=== PATIENT | female | born 1945 | race Caucasian/White ===

== ENCOUNTER → 2023-11-30 13:41 | Outpatient (REF) | payer OTHER, SELFPAY | LOC: RAD 13:41 | PROVIDERS: ATTENDING PHYSICIAN Family Medicine | DX: N93.9 Abnormal uterine and vaginal bleeding, unspecified (principal) | CPT/HCPCS: 76830; 76856 ==

== ENCOUNTER → 2024-07-24 14:43 | Outpatient (REF) | payer OTHER, SELFPAY | LOC: RAD 14:43 | PROVIDERS: ATTENDING PHYSICIAN Internal Medicine Hematology & Oncology; FAMILY PHYSICIAN Family Medicine | DX: C7A.8 Other malignant neuroendocrine tumors (principal) | CPT/HCPCS: 74177; Q9967 ==

== ENCOUNTER → 2025-05-22 09:29 | Outpatient (REF) | payer OTHER, SELFPAY | LOC: WOUND 09:29 | PROVIDERS: ATTENDING PHYSICIAN Surgery; FAMILY PHYSICIAN Family Medicine | DX: L97.319 Non-pressure chronic ulcer of right ankle with unspecified severity (principal); I87.2 Venous insufficiency (chronic) (peripheral) | CPT/HCPCS: 99203 ==

== ENCOUNTER 2025-06-26 06:39 | Observation (INO) | payer OTHER, SELFPAY ==
[2025-06-26] VITALS (12 sets, daily range): BP systolic 120–175; BP diastolic 66–111; PULSE 80; O2SAT 96; BMI 39.8; BMI 39.5
--- NOTE | 2025-06-26 03:37 | ED.GENMED ---
History of Present Illness
General
Chief Complaint: Fall
Source: patient and ambulance crew
Exam Limitations: none
Time Seen by Provider: 06/26/25 03:16
Nursing documentation reviewed up to this point in time: agreed with
History of Present Illness
History of Present Illness:
Note:
CHIEF COMPLAINT(S)
Fall while using a walker.
HISTORY OF PRESENT ILLNESS
The patient is a 80-year-old female who experienced a fall while walking with the aid of her walker. She reports the fall occurred as she attempted to navigate her home. She denies new episodes of weakness as she regularly uses a walker due to
ongoing mobility issues. The patient lives with her and maintains two cats. She fell because she was unable to clean properly, leading to an environment that contributed to her fall. She denies any pain, nausea, or vomiting following the
incident and confirms not hitting her head during the fall.
PAST MEDICAL AND SURGICAL HISTORY
The patient has a history of knee replacement surgery (left knee) and has had prior treatment for colon cancer, treated approximately four years ago.
PHYSICAL EXAM
General: Alert, no acute distress.
Skin: Warm, dry. erythema right groin, buttock, no skin breakdown
Head: Normocephalic, atraumatic.
Neck: Supple, trachea midline.
Eye Ears, nose, mouth and throat: Oral mucosa moist.
Cardiovascular: Normal peripheral perfusion, No edema.
Respiratory: Respirations are non-labored.
Gastrointestinal: Abdominal examination unremarkable.
Back: No visible injuries, no tenderness noted.
Musculoskeletal: Normal ROM, Normal strength.
Neurological: Alert and oriented to person, place, time, and situation, No focal neurological deficit observed.
Psychiatric: Cooperative, appropriate mood & affect.
PROBLEM LIST
Acute Problems:
- Fall while using a walker.
- Potential urinary tract infection.
Chronic Problems:
- History of uterine cancer.
- Mobility issues requiring walker use.
PLAN
- Conduct a computed tomography (CT) scan of the head to rule out any intracranial injuries from the fall.
- Obtain a urine sample to evaluate for potential urinary tract infection.
- Continue to monitor the patients orientation and cognitive status.
DIFFERENTIAL DIAGNOSIS
The Differential Diagnosis includes, in no particular order and is not limited to:
- Urinary tract infection.
- Vestibular dysfunction.
- Medication side effects.
- Orthostatic hypotension.
- Cerebrovascular accident.
- Dehydration.
- Anemia.
- Arthritis exacerbation.
- Neuropathy.
- Environmental hazards at home.
CARE-UPDATE
06/26/25 - 04:36
CT head and cervical spine show no acute trauma, but chronic degenerative changes are present in both areas. Patient has a UTI with associated leukocytosis; initiate treatment with IV Ocephine. Recommend admission under the care of hospitalists.
Disposition:
SUMMARY OF ENCOUNTER
The patient, a 80-year-old female, presented to the emergency department following a fall while using her walker. She did not report pain, nausea, or vomiting and confirmed no head injury. The fall was attributed to environmental hazards in the
home. Her cognitive status is generally intact, although there was a misstatement of the current year. She was evaluated for potential complications such as a urinary tract infection, which was confirmed along with leukocytosis. Imaging indicated no
acute trauma but chronic degenerative changes. Considering the findings and her medical history, she was admitted under the care of the hospitalists for further management.
DISPOSITION
Admit.
ASSESSMENT
- Fall while using a walker.
- Urinary tract infection with leukocytosis.
- Chronic degenerative changes noted.
EMERGENCY TREATMENTS ADMINISTERED
Ceftriaxone (Rocephin) administered for urinary tract infection.
MANAGEMENT OF THE PATIENTS CARE WAS DISCUSSED WITH
Hospitalists for admission and ongoing care.
PLAN
Conduct further evaluation and management of urinary tract infection and fall-related complications under hospitalist care.
INDEPENDENT REVIEW OF LABS AND INTERPRETATION OF TESTS
My independent review of CBC indicates leukocytosis consistent with urinary tract infection.
CRITICAL CARE TIME
Diagnosis of URINARY TRACT INFECTION (ICD-10 N39.0), INCIDENTAL FALL (ICD-10 W19), CHRONIC DEGENERATIVE DISORDERS (ICD-10 M85.9), CANDIDAL DERMATITIS (ICD-10 B37.2).
Past History
Past History
ED Past Medical History: Hypothyroidism and Other (Osteoarthritis)
ED Past Surgical History: Orthopedic
Social History
Tobacco: Non-smoker
Alcohol: None
Phy Exam
Physical Exam
Physical Exam:
.
Course
Orders/Labs/Results
Orders:
Orders
06/26/25 03:34
CT Head W/o Iv Contrast Urgent
Comment:
Reason For Exam: fall
Cardiac Monitoring- Treatment ONCE
IV Insert/Care/Rem.- Treatment PRN
Straight cath- Treatment ONCE
Pulse Ox/cont/shift [RESP] Stat
Quantity: 1
06/26/25 03:44
Complete Blood Count/With Diff Urgent
Comprehensive Metabolic Panel Urgent
Troponin I Urgent
Urinalysis Reflex To Culture Urgent
Date Specimen was Collected: 06/26/25
Time Specimen was Collected: 03:40
Urine Microscopic Reflex Cult Urgent
Urine Culture Urgent
BENJY Source: U
Specimen Description:
Date Specimen was Collected: 06/26/25
Time Specimen was Collected: 03:40
06/26/25 03:54
CT Cervical Spine W/o Iv Contr Urgent
Comment:
Reason For Exam: fall
06/26/25 04:31
CefTRIAXone [Rocephin] 1,000 mg IV NOW STA
Abnormal Lab Results
06/26/25
03:44
WBC 18.0 H 10^3/uL
(4.8-10.8)
MPV 11.4 H fL
(7.4-10.4)
Abs Immat Gran (auto) 0.1 H 10^3/uL
(0-0.05)
Absolute Neuts (auto) 13.9 H 10^3/uL
(1.4-6.5)
Absolute Monos (auto) 1.4 H 10^3/uL
(0.1-0.6)
Immature Gran % 0.7 H %
(0-0.5)
Neutrophils % 77.4 H %
(42.2-75.2)
Lymphocytes % 12.6 L %
(20.5-51.1)
Glucose 163 H mg/dl
(70-99)
Urine Ketones 1+ A
(Negative)
Ur Occult Blood Reflex 4+ A
(Negative)
Urine Nitrite (Reflex) Positive A
(Negative)
Leukocyte Esterase Rfl 3+ A
(Negative)
Urine RBC 3-6 A /HPF
(0-2)
Urine WBC (Reflex) >100 A /HPF
(0-5)
Urine Bacteria (Reflex) Many A
(Negative)
Urine Albumin (Reflex) 3+ A
(Neg - Trace)
06/26/25 03:44
06/26/25 03:44
Vital Signs
Initial and Last Documented VS:
Initial Vital Signs
Temp Pulse Resp BP Pulse Ox
98.6 F 96 18 167/75 95
06/26/25 03:14 06/26/25 03:14 06/26/25 03:14 06/26/25 03:14 06/26/25 03:14
Last Documented Vital Signs
Temp Pulse Resp BP Pulse Ox
98.6 F 87 24 125/76 95
06/26/25 03:14 06/26/25 04:30 06/26/25 04:30 06/26/25 04:00 06/26/25 04:15
*Pulse Oximetry
SaO2: 94
Oxygen Mode of Delivery: Room air
Patient hypoxic: no
*Critical Care Note
Total Time (30-74mins, 75-104mins- exclusive of procedures): Not Applicable
ED Attending Note
-
Portions of this chart may have been created with voice recognition software.� Occasional wrong word or��sound alike� substitutions may have occurred due to the inherent limitations of voice recognition software.
Discharge Plan
Departure
Patient Disposition: Admit
Date of Disposition: 06/26/25
Time of Disposition: 04:33
Admit to: Telemetry
Presentation/result/management discussed w/ accepting MD/DO: Hospitalist
Patient with high blood pressure during this ER visit?: Yes
Condition: Fair
Discharge Problem:
Acute UTI, Weakness, Candidal dermatitis
Prescriptions:
No Action
furosemide 40 MG tablet
40 mg PO DAILY
alendronate 70 MG tablet
70 mg PO TH
acetaminophen 325 MG tablet
650 mg PO Q6HPRN PRN (Reason: mild pain/ fever>100.5F) 0RF
levothyroxine 175 mcg Tablet
175 mcg PO DAILY
amlodipine-benazepril 5-10 mg Capsule
1 cap PO DAILY
mesalamine 1.2 gram Tablet,Delayed Release (Dr/Ec)
2.4 g PO DAILY
vitamin B complex Tablet
1 tab PO DAILY
diphenhydramine-acetaminophen [Acetaminophen PM] 25-500 mg Tablet
1 tab PO HS PRN (Reason: sleep)
Referrals:
UNKNOWN,NO INTERVIEW [Family Provider]
Interventions
Interventions:
*Risk Screen - Suicide Last Done: 06/26/25 03:28
*General Assessment Last Done: 06/26/25 03:28
*Neglect/Abuse Screening Last Done: 06/26/25 03:28
*ED- Fall Risk Assessment Last Done: 06/26/25 03:28
*ED COVID-19 Vaccine History Last Done: 06/26/25 03:28
ED-Musculoskeletal Assessment Last Done: 06/26/25 03:32
ED- Neurological Assessment Last Done: 06/26/25 03:32
ED-Skin Assessment Last Done: 06/26/25 03:32
Discharge Date and Time
Print Language: TAJIK
[2025-06-26 03:55] LABS: Hematocrit 39.8 % (37.0-47.0); Hemoglobin 13.2 g/dL (12.0-16.0); Mean Corp Hgb Conc. 33.2 g/dL (33.0-37.0); Mean Corpuscular Volume 92.8 fL (81.0-99.0); Nucleated Red Blood Cells % 0 %; Platelet Count 224 10^3/uL (130-400); Red Cell Dist. Width 13.5 % (11.5-14.5)
[2025-06-26 04:15] LABS: Urine Character Clear (Clear); Urine Squamous Cell >30 /LPF (Few)
[2025-06-26 04:16] LABS: Urine White Cell >100 /HPF (0-5)
[2025-06-26 04:18] LABS: ALT (SGPT) 24 U/L (0-35); AST (SGOT) 26 U/L (14-36); Albumin 4.5 g/dl (3.5-5.0); Alkaline Phosphatase 124 U/L (38-126); Blood Urea Nitrogen 17 mg/dl (7-17); Calcium 9.6 mg/dl (8.4-10.2); Carbon Dioxide 24 mmol/L (22-30); Chloride 106 mmol/L (98-107); Estimated Creatinine Clearance 63 ml/min; Glucose 163 mg/dl (70-99); Potassium 4.0 mmol/L (3.5-5.1); Sodium 139 mmol/L (135-145); Total Protein 8.0 g/dl (6.3-8.2); eGFR > 60.00
[2025-06-26 04:30] LABS: Troponin I < 0.012 ng/ml
[2025-06-26] MEDS: ROCEPHIN 1000 MG IV (04:39)
--- NOTE | 2025-06-26 06:00 | HPS.HSE ---
Family Physician
-
Family Physician: NO INTERVIEW UNKNOWN
Chief Complaint
-
Fall
History of Present Illness
This is a 80-year-old female with past medical history significant for hypothyroid, hypertension, history of a neuroendocrine tumor s/p resection who presents to the emergency department with episode of a fall while ambulating with a walker at home.
Patient reported that she was ambulating with a walker she typically does when she is laid down to the floor. She denies rapid fall which resulted in trauma. She denies any head strike. He denies feeling dizzy or lightheaded at the time. She
denies any chest pain palpitations nausea vomiting or diaphoresis. When inquired she reports that she has had a cough for a while. It looks like in May she was treated for upper respiratory infection with doxycycline and some neb treatments and
a Medrol Dosepak. She denied any fevers or chills. She denies feeling short of breath. She denies any diarrhea. She did report poor appetite for the last 1 day which he told me that she only had a slice of bread whereas she usually has a good
appetite prior.
Patient denies any urinary symptoms including dysuria frequency urgency or incontinence. She has a chronic lymphedema with a rash right lower extremity just above the ankle. She denies any tenderness there. Patient reported that she has been
using a walker for ambulatory dysfunction for a while due to history of prior falls.
In the emergency department she was afebrile, blood pressure was 150/70 with a pulse of 86 and she was satting 95% on room air. CT of the head was negative. C-spine CT showed no acute trauma.
She did have a white count of 18, hemoglobin of 13.4 and a plate count of 224. Electrolytes BUN and creatinine were normal. UA was positive for blood also shows squamous cells suggestive of contamination.
Medical History
Past Medical History
Past Medical History: Reports Cancer (Neuroendocrine tumor s/p resection), HTN and Hypothyroidism
Past Surgical History: Reports Bowel Resection (Right hemicolectomy for neuroendocrine tumor resection) and Orthopedic (Left total knee arthroplasty)
Social History
Tobacco: Non-smoker
Alcohol: None
Drug: None
Personal:
Living: With Family
Family History
Family History: Not pertinent
Allergies / Home Medications
Allergies reflects when Allergies were last updated in [facility].
Home Medications with original date entered in [facility]
Allergy/Medication List:
Allergies
Allergy/AdvReac Type Severity Reaction Status Date / Time
mushroom Allergy Rash SOB Verified 06/26/25 04:00
neomycin Allergy Rash Verified 06/26/25 04:00
oyster extract Allergy rash,SOB Verified 06/26/25 04:00
Home Medications
alendronate 70 mg tablet 70 mg PO DAILY @ 0600 Osteoperosis 11/06/19
furosemide 40 mg tablet 40 mg PO DAILY Fluid retention/Swelling 11/06/19
amlodipine 5 mg-benazepril 10 mg capsule 1 cap PO DAILY Blood pressure 07/26/22
mesalamine 1.2 gram tablet,delayed release 2.4 g PO DAILY Anti-inflammatory 07/26/22
Held on 08/01/22. Instructions: Hold until after post op visit.
levothyroxine 150 mcg tablet 150 mcg PO DAILY 06/26/25
Review of Systems
-
History Source: Patient
Constitutional: Reports No Symptoms
EENT: Reports No Symptoms
Respiratory: Reports Cough (Chronic cough)
Cardiac: Reports No Symptoms
Abdomen/GI: Reports No Symptoms
: Reports No Symptoms
Musculoskeletal: Reports No Symptoms
Skin: Reports No Symptoms
Neurological: Reports No Symptoms
Endocrine: Reports No Symptoms
Hematologic/Lymphatic: Reports No Symptoms
Psych: Reports No Symptoms
Physical Exam
Vital Signs
Vital Signs
Temp Pulse Resp BP Pulse Ox
98.6 F 86 24 150/74 93
06/26/25 03:14 06/26/25 05:45 06/26/25 05:45 06/26/25 05:00 06/26/25 05:45
Physical Exam
General: Well Developed, Well Nourished and Comfortable
HEENT: NormoCephalic, Anicteric, Atraumatic and PERRLA; No Oxygen
Respiratory: Clear
Cardiac: S1/S2 and Regular Rhythm
Breast: Deferred by me
GI: Soft, Non Tender, Non Distended and Normal Bowel Sounds
Rectal: Deferred by Provider
Genito-urinary: Deferred by me
Musculoskeletal: No Clubbing, No Cyanosis and Edema, Right Lower Extremity; No Edema, Left Lower Extremity
Skin: Warm, Dry and Rash (About a 3 cm circumferential erythema without tenderness, induration just above the ankle)
Neuro: AO x 3 and Nonfocal/grossly intact
Hematologic/Lymphatic: No Lymphadenopathy
Psych: Calm
Laboratory Results
-
06/26/25 03:44
06/26/25 03:44
Laboratory Results
Total Bilirubin 0.5 mg/dl (0.2-1.3) 06/26/25 03:44
AST 26 U/L (14-36) 06/26/25 03:44
ALT 24 U/L (0-35) 06/26/25 03:44
Alkaline Phosphatase 124 U/L (38-126) 06/26/25 03:44
Troponin I < 0.012 ng/ml 06/26/25 03:44
Data Reviewed
-
CT Scan: Report Reviewed by me
Lab Data: Labs Reviewed by me
Old Records: Reviewed
Impression/Plan
-
IMPRESSION:
80 F w/ hypertension who had a fall while walking with a walker. Spouse couldn't get her up and brought her to ED. No trauma. Evaluation in ED revealed peripheral leukocytosis to 18. U/A is contaminated appearing but presumptively positive. On
review she reports one day of poor appetite and a long standing cough and congestion.
PLAN:
Leukocytosis - Unclear source. Reports chronic congestion and cough. No hypoxia. No fever. U/A is not very helpful though + appearing. There is some erythema in the RLE. Suspect stasis dermatitis without tendernes sor induration. Unlikely
etiology
- admit to med/surg observation
- check covid
- check Xray
- urine cultures
- IV ceftriaxone pending culture of urine
Fall - No focal deficits. Suspect chronic weakness but cannot rule out acute infection given leukocytosis
- check orthostatics
- check tsh, b12
- PT consultation
HTN
- continue her furosemide, amlodipine and benazepril
DVT PPX - lovenox sq
Code status - full code
[2025-06-26 07:22] LABS: COVID-19 Antigen Negative (Negative)
--- NOTE | 2025-06-26 08:03 | W.PN.HOSP.TC ---
Today's Communication/Plan
-
CT chest pain
PT/OT pending
Assessment / Plan
Assessment / Plan
Impression:
80 F w/ hypertension who had a fall while walking with a walker. Spouse couldn't get her up and brought her to ED. No trauma. Evaluation in ED revealed peripheral leukocytosis to 18. U/A is contaminated appearing but presumptively positive. On
review she reports one day of poor appetite and a long standing cough and congestion.
Patient was started on Rocephin for UTI.
Also concern of right leg cellulitis.
Cervical spine CT incidentally showing prominent lymph node in upper mediastinum, patient was chronic coughing.
Will order CT chest.
Assessment/plan:
Sepsis secondary to UTI.
Patient meets sepsis criteria on admission with leukocytosis and tachycardia.
Urinalysis shows evidence of UTI.
Otherwise patient reports chronic congestion and cough. No hypoxia. No fever.
Also there is some erythema in the RLE. Suspect stasis dermatitis without tendernes sor induration. Unlikely etiology
Chest x-ray shows normal
urine cultures pending
Continue IV ceftriaxone pending urine
Status post fall.
given leukocytosis
CT head shows:
No acute intracranial abnormality noted.
There is prominence of the ventricular system with findings which can be seen with normal pressure hydrocephalus (NPH) in the correct clinical setting.
CT cervical spine done shows:
No acute osseous abnormality.
Multilevel moderate degenerative changes most pronounced at C5-C6.
Mildly prominent lymph nodes within the upper mediastinum which are overall stable to slightly increased in size from prior, however dedicated nonemergent CT chest may be considered
CT chest pending
Fall precautions.
PT/OT consult.
Social service for discharge planning.
Check orthostatic.
TSH/vitamin B 12
History of hypertension
- continue her furosemide, amlodipine and benazepril.
Hypothyroidism.
Continue levothyroxine
CODE STATUS: Full code
DVT prophylaxis: Lovenox
Diet: Regular diet
Family communication: Discussed with at bedside
Disposition: CT chest pain
PT/OT pending
Total time spent on today's encounter was 65 minutes which included time spent in counseling the patient/family regarding diagnosis and treatment plan as listed above, goals of care, and symptom management. Case was discussed with nursing staff,
specialists, and care coordinators/case management. All labs and imaging personally reviewed by me. Remainder the time spent in detailed review of previous records, lab data, imaging, and other medical provider documentation.
Anticipated Discharge: 24 - 48 hours
Subjective/Interval History
-
Date of Service: June 26, 2025
Patient seen and examined at bedside, denies any chest pain or shortness of breath, no abdominal pain, no nausea, no vomiting, no diarrhea or constipation.
Objective Data
-
Labs:
Laboratory Results
06/26/25
03:44
WBC 18.0 H
Hgb 13.2
Hct 39.8
Plt Count 224
Sodium 139
Potassium 4.0
Chloride 106
Carbon Dioxide 24
BUN 17
Creatinine 0.7
Glucose 163 H
Calcium 9.6
Total Bilirubin 0.5
AST 26
ALT 24
Alkaline Phosphatase 124
Vital Signs:
Vital Signs
Temp Pulse Resp BP Pulse Ox
99.1 F 91 15 152/74 95
06/26/25 07:32 06/26/25 07:32 06/26/25 07:32 06/26/25 07:32 06/26/25 07:35
Physical Exam
-
General: Well Developed, Well Nourished, No Apparent Distress and Comfortable
HEENT: Normocephalic, Atraumatic, Moist Mucous Membranes, No Ptosis, PERRLA and Nose Appears Normal
Respiratory: Rales and Non Labored Respirations
Cardiac: Regular Rhythm and S1/S2
Breast: Deferred by me
GI: Soft, Nontender, Nondistended and Normal Bowel Sounds
Genito-urinary: No Costovertebral Tender
Musculoskeletal: No Clubbing, No Cyanosis, Edema, Right Lower Extrem and Edema, Left Lower Extrem
Skin: Warm and Other (Right leg erythema)
Neuro: Awake, Alert, Oriented, AO x 3 and No Motor Deficits
Psych: Calm
Data Reviewed
-
Diagnostic Radiology: Image personally visualized and interpreted and Report Reviewed by me
CT Scan: Image personally visualized and interpreted and Report Reviewed by me
Ultrasound: Image personally visualized and interpreted and Report Reviewed by me
MRI: Image personally visualized and interpreted and Report Reviewed by me
Medical Tests (Nuc Med, Echo etc): Image personally visualized and interpreted and Report Reviewed by me
Labs: Labs Reviewed by me
Old Records: Reviewed
[2025-06-26 08:16] LABS: TSH 4.33 uIU/ml (0.47-4.68)
[2025-06-26 08:35] LABS: Vitamin B12 930 pg/ml (239-931)
[2025-06-26] MEDS: NORVASC 5 MG PO (09:58)
[2025-06-26] MEDS: LASIX 40 MG PO (09:58)
[2025-06-26] MEDS: ZESTRIL 10 MG PO (09:58)
--- NOTE | 2025-06-26 12:46 | CM ---
Addendum entered by Dennise Reyes 06/26/25 13:37:
patient OBS status - [facility] form explained & signed. In chart
Original Note:
Patient seen at bedside
IA completed
PMH: hypothyroid, hypertension, history of a neuroendocrine tumor s/p resection
patient lives with her in a [address] community [facility] [employer], 1 story modular home, 0 [address] through garage
PLOF: independent with walker
DME: Walker, cane, grab bars in shower
Denies VN/Rehab
PT to eval
PCP: Dr. Ramos
PHARMACY: [facility]
PLAN: TBD. Await PT Eval CM to follow for needs
[2025-06-26] MEDS: LOVENOX 40 MG SC (17:00)
[2025-06-26] MEDS: SENOKOT-S 1 TABLET PO (17:42)
[2025-06-26] MEDS: DESENEX/MITRAZOL/ZEASORB 1 APPLIC TOPICAL (21:25)
[2025-06-27 05:49] VITALS: BMI 39.2
[2025-06-27] MEDS: STERILE WATER FOR INJECTION 10 ML IV (06:34)
[2025-06-27] MEDS: SYNTHROID 150 MCG PO (06:35)
[2025-06-27] MEDS: ROCEPHIN 1000 MG IV (06:35)
[2025-06-27 06:48] LABS: Hematocrit 37.2 % (37.0-47.0); Hemoglobin 12.3 g/dL (12.0-16.0); Mean Corp Hgb Conc. 33.1 g/dL (33.0-37.0); Mean Corpuscular Volume 92.1 fL (81.0-99.0); Platelet Count 194 10^3/uL (130-400); Red Cell Dist. Width 13.5 % (11.5-14.5)
[2025-06-27 07:00] VITALS: BP 130/73
[2025-06-27 07:35] LABS: Blood Urea Nitrogen 18 mg/dl (7-17); Calcium 8.6 mg/dl (8.4-10.2); Carbon Dioxide 28 mmol/L (22-30); Chloride 105 mmol/L (98-107); Estimated Creatinine Clearance 73 ml/min; Glucose 110 mg/dl (70-99); Potassium 3.9 mmol/L (3.5-5.1); Sodium 137 mmol/L (135-145); eGFR > 60.00
[2025-06-27] MEDS: NORVASC 5 MG PO (08:31)
[2025-06-27] MEDS: ZESTRIL 10 MG PO (08:32)
[2025-06-27] MEDS: LASIX 40 MG PO (08:32)
[2025-06-27] MEDS: DESENEX/MITRAZOL/ZEASORB 1 APPLIC TOPICAL (08:33)
--- NOTE | 2025-06-27 10:15 | CM ---
Patient seen at bedside
PT rec SNF
Patient refused SNF - offered VN-reviewed options-prefers [facility]
notified [facility] liason-referral to be placed
hospitalist aware
PLAN: Home with [facility]
family to transport
--- NOTE | 2025-06-27 10:16 | W.PN.HOSP.TC ---
Today's Communication/Plan
-
Discharge home
Assessment / Plan
Assessment / Plan
Impression:
80 F w/ hypertension who had a fall while walking with a walker. Spouse couldn't get her up and brought her to ED. No trauma. Evaluation in ED revealed peripheral leukocytosis to 18. U/A is contaminated appearing but presumptively positive. On
review she reports one day of poor appetite and a long standing cough and congestion.
Patient was started on Rocephin for UTI.
Also concern of right leg cellulitis.
Cervical spine CT incidentally showing prominent lymph node in upper mediastinum, patient was chronic coughing.
CT chest shows.
Progressive mild mediastinal adenopathy, as described.
Progressive mild nonspecific subpleural interstitial pulmonary fibrotic changes, left greater than right. No focal consolidation to suggest pneumonia. No suspicious pulmonary mass.
If the patient has emphysema, patient should be assessed for an annual low dose lung cancer CT program, as pulmonary emphysema is an independent risk factor for lung cancer.
Discussed with the patient, repeat CT scan as outpatient, prescription given.
Patient also advised to follow-up with her family doctor and her previous oncology.
Physical therapy recommending rehab but patient refused to go to rehab and requested home with home physical therapy.
Patient will be discharged on oral Ceftin for additional 5 days
Assessment/plan:
Sepsis secondary to UTI.
Patient meets sepsis criteria on admission with leukocytosis and tachycardia.
Urinalysis shows evidence of UTI.
Otherwise patient reports chronic congestion and cough. No hypoxia. No fever.
Also there is some erythema in the RLE. Suspect stasis dermatitis without tendernes sor induration. Unlikely etiology
Chest x-ray shows normal
urine cultures pending
Continue IV ceftriaxone pending urine
Patient will be discharged on oral Ceftin for additional 5 days
Status post fall.
given leukocytosis
CT head shows:
No acute intracranial abnormality noted.
There is prominence of the ventricular system with findings which can be seen with normal pressure hydrocephalus (NPH) in the correct clinical setting.
CT cervical spine done shows:
No acute osseous abnormality.
Multilevel moderate degenerative changes most pronounced at C5-C6.
Mildly prominent lymph nodes within the upper mediastinum which are overall stable to slightly increased in size from prior, however dedicated nonemergent CT chest may be considered
CT chest pending
Fall precautions.
PT/OT consulted.
Social service for discharge planning.
Physical therapy recommending rehab but patient refused to go to rehab and requested home with home physical therapy.
mild mediastinal adenopathy
CT chest shows:
Progressive mild mediastinal adenopathy, as described.
Progressive mild nonspecific subpleural interstitial pulmonary fibrotic changes, left greater than right. No focal consolidation to suggest pneumonia. No suspicious pulmonary mass.
If the patient has emphysema, patient should be assessed for an annual low dose lung cancer CT program, as pulmonary emphysema is an independent risk factor for lung cancer.
Discussed with the patient, repeat CT scan as outpatient, prescription given.
Patient also advised to follow-up with her family doctor and her previous oncology.
History of hypertension
- continue her furosemide, amlodipine and benazepril.
Hypothyroidism.
Continue levothyroxine
CODE STATUS: Full code
DVT prophylaxis: Lovenox
Diet: Regular diet
Family communication: Discussed with at bedside
Disposition: Dc home
Total time spent on today's encounter was 65 minutes which included time spent in counseling the patient/family regarding diagnosis and treatment plan as listed above, goals of care, and symptom management. Case was discussed with nursing staff,
specialists, and care coordinators/case management. All labs and imaging personally reviewed by me. Remainder the time spent in detailed review of previous records, lab data, imaging, and other medical provider documentation.
Anticipated Discharge: Today
Subjective/Interval History
-
Date of Service: June 27, 2025
Patient seen and examined at bedside, denies any chest pain or shortness of breath, no abdominal pain, no nausea, no vomiting, no diarrhea or constipation.
Objective Data
-
Labs:
Laboratory Results
06/27/25
06:16
WBC 13.2 H
Hgb 12.3
Hct 37.2
Plt Count 194
Sodium 137
Potassium 3.9
Chloride 105
Carbon Dioxide 28
BUN 18 H
Creatinine 0.6
Glucose 110 H
Calcium 8.6
Vital Signs:
Vital Signs
Temp Pulse Resp BP Pulse Ox
98.1 F 84 19 130/73 99
06/27/25 07:00 06/27/25 08:32 06/27/25 07:00 06/27/25 08:32 06/27/25 07:00
I&O
06/26/25 06/27/25 06/28/25
06:59 06:59 06:59
Intake Total 600 / 600
Balance 600 / 600
Physical Exam
-
General: Well Developed, Well Nourished, No Apparent Distress and Comfortable
HEENT: Normocephalic, Atraumatic, Moist Mucous Membranes, No Ptosis, PERRLA and Nose Appears Normal
Respiratory: Rales and Non Labored Respirations
Cardiac: Regular Rhythm and S1/S2
Breast: Deferred by me
GI: Soft, Nontender, Nondistended and Normal Bowel Sounds
Genito-urinary: No Costovertebral Tender
Musculoskeletal: No Clubbing, No Cyanosis, Edema, Right Lower Extrem and Edema, Left Lower Extrem
Skin: Warm and Other (Right leg erythema)
Neuro: Awake, Alert, Oriented, AO x 3 and No Motor Deficits
Psych: Calm
--- NOTE | 2025-06-27 10:27 | W.DCSUMMARY ---
Discharge Summary
Discharge Data
Date of Admission: 06/26/25
Date of Discharge: 06/27/25
Total time spent discharging patient (in min): 40
-
Pending Results: No
Hospital Course
Hospital course
80 F w/ hypertension who had a fall while walking with a walker. Spouse couldn't get her up and brought her to ED. No trauma. Evaluation in ED revealed peripheral leukocytosis to 18. U/A is contaminated appearing but presumptively positive. On
review she reports one day of poor appetite and a long standing cough and congestion.
Patient was started on Rocephin for UTI.
Also concern of right leg cellulitis.
Cervical spine CT incidentally showing prominent lymph node in upper mediastinum, patient was chronic coughing.
CT chest shows.
Progressive mild mediastinal adenopathy, as described.
Progressive mild nonspecific subpleural interstitial pulmonary fibrotic changes, left greater than right. No focal consolidation to suggest pneumonia. No suspicious pulmonary mass.
If the patient has emphysema, patient should be assessed for an annual low dose lung cancer CT program, as pulmonary emphysema is an independent risk factor for lung cancer.
Discussed with the patient, repeat CT scan as outpatient, prescription given.
Patient also advised to follow-up with her family doctor and her previous oncology.
Physical therapy recommending rehab but patient refused to go to rehab and requested home with home physical therapy.
Patient will be discharged on oral Ceftin for additional 5 days.
During hospitalization patient was treated from the following
Sepsis secondary to UTI.
Patient meets sepsis criteria on admission with leukocytosis and tachycardia.
Urinalysis shows evidence of UTI.
Otherwise patient reports chronic congestion and cough. No hypoxia. No fever.
Also there is some erythema in the RLE. Suspect stasis dermatitis without tendernes sor induration. Unlikely etiology
Chest x-ray shows normal
urine cultures pending
Continue IV ceftriaxone pending urine
Patient will be discharged on oral Ceftin for additional 5 days
Status post fall.
given leukocytosis
CT head shows:
No acute intracranial abnormality noted.
There is prominence of the ventricular system with findings which can be seen with normal pressure hydrocephalus (NPH) in the correct clinical setting.
CT cervical spine done shows:
No acute osseous abnormality.
Multilevel moderate degenerative changes most pronounced at C5-C6.
Mildly prominent lymph nodes within the upper mediastinum which are overall stable to slightly increased in size from prior, however dedicated nonemergent CT chest may be considered
CT chest pending
Fall precautions.
PT/OT consulted.
Social service for discharge planning.
Physical therapy recommending rehab but patient refused to go to rehab and requested home with home physical therapy.
mild mediastinal adenopathy
CT chest shows:
Progressive mild mediastinal adenopathy, as described.
Progressive mild nonspecific subpleural interstitial pulmonary fibrotic changes, left greater than right. No focal consolidation to suggest pneumonia. No suspicious pulmonary mass.
If the patient has emphysema, patient should be assessed for an annual low dose lung cancer CT program, as pulmonary emphysema is an independent risk factor for lung cancer.
Discussed with the patient, repeat CT scan as outpatient, prescription given.
Patient also advised to follow-up with her family doctor and her previous oncology.
History of hypertension
- continue her furosemide, amlodipine and benazepril.
Hypothyroidism.
Continue levothyroxine
CODE STATUS: Full code
DVT prophylaxis: Lovenox
Diet: Regular diet
Family communication: Discussed with at bedside
Disposition: Dc home
Total time spent on today's encounter was 40 minutes which included time spent in counseling the patient/family regarding diagnosis and treatment plan as listed above, goals of care, and symptom management. Case was discussed with nursing staff,
specialists, and care coordinators/case management. All labs and imaging personally reviewed by me. Remainder the time spent in detailed review of previous records, lab data, imaging, and other medical provider documentation.
Anticipated Discharge: Today
Discharge Plan
-
Patient Disposition: Home with Home Care
Discharge Diagnosis/Procedures: Sepsis secondary to UTI.
Mild mediastinal adenopathy.
Hypertension
Diet: Low Sodium
Activity: As tolerated
Other Services: PT and OT
Referrals:
Oncologist [Other] - in three to four weeks
Referral Note: Please follow-up with previous oncologist for the CT finding, will repeat CT scan after 6 month
Geremias Ramos DO [Active, [facility]] - in one week
Prescriptions:
New
(DME) CT chest without contrast
See Rx Instructions .Route .MEDSUPPLY Qty: 1 0RF
Rx Instructions:
to be done after 6 month (around December 2025)
Diagnosis: Mediastinal Lymphadenopathy.
Please fax result to PCP
cefuroxime axetil 500 mg tablet
500 mg PO BID 5 Days Qty: 10 0RF
Continued
furosemide 40 MG tablet
40 mg PO DAILY
alendronate 70 MG tablet
70 mg PO TH
amlodipine-benazepril 5-10 mg Capsule
1 cap PO DAILY
levothyroxine 150 mcg Tablet
150 mcg PO DAILY
acetaminophen [Tylenol] 325 mg Tablet
650 mg PO BID
loperamide 2 mg Tablet
2 mg PO Q6HPRN PRN (Reason: diarrhea)
therapeutic multivitamin Tablet
1 tab PO DAILY
Discharge Orders:
Discharge Patient (As Directed); Ordered 06/27/25
Ordered By: Ted Albarado
Discharge Date and Time
Print Language: EMIRATI
--- NOTE | 2025-06-27 11:26 | VNURNOTE ---
Manager [employer] met with patient to discuss [facility] nurse/therapy, visits, schedule and homebound status. Patient is agreeable and understands that visits at home will be 2-3 x per week to assess and teach medical management.
Patient is aware that [facility] will contact them for start of care in 1-2 days after discharge from .
[facility] referral completed in [facility].
[2025-06-27 12:41] VITALS: BP 130/73; O2SAT 99
[2025-06-27 13:30] VITALS: BP 150/64
== END 2025-06-27 14:15 | disposition home health service (06) ==
LOC: 3 WEST ACU 06:39
PROVIDERS: ADMITTING PHYSICIAN Internal Medicine; ATTENDING PHYSICIAN General Practice; EMERGENCY PHYSICIAN Emergency Medicine
DX: A41.9 Sepsis, unspecified organism (principal); N39.0 Urinary tract infection, site not specified; R53.1 Weakness; R09.81 Nasal congestion; R05.3 Chronic cough; I10 Essential (primary) hypertension; J84.10 Pulmonary fibrosis, unspecified; M47.812 Spondylosis without myelopathy or radiculopathy, cervical region; I89.0 Lymphedema, not elsewhere classified; R26.2 Difficulty in walking, not elsewhere classified; E03.9 Hypothyroidism, unspecified; W01.0XXA Fall on same level from slipping, tripping and stumbling without subsequent striking against object, initial encounter; Y93.01 Activity, walking, marching and hiking; Y92.009 Unspecified place in unspecified non-institutional (private) residence as the place of occurrence of the external cause; Z85.038 Personal history of other malignant neoplasm of large intestine; Z96.652 Presence of left artificial knee joint; Z85.42 Personal history of malignant neoplasm of other parts of uterus; Z79.890 Hormone replacement therapy; Z91.81 History of falling; Z88.1 Allergy status to other antibiotic agents; Z91.018 Allergy to other foods; Z90.49 Acquired absence of other specified parts of digestive tract; Z79.83 Long term (current) use of bisphosphonates; Z11.52 Encounter for screening for COVID-19
CPT/HCPCS: 51701; 70450; 71046; 71250; 72125; 80048; 80053; 81003; 81015; 82607; 84443; 84484; 85025; 85027; 87077; 87086; 87186; 87811; 94760; 96374; 97116; 97163; 97530; 99285; G0378

== ENCOUNTER 2025-07-26 08:57 | Emergency (ER) | payer OTHER, SELFPAY ==
[2025-07-26 08:59] VITALS: BP 190/91
--- NOTE | 2025-07-26 09:36 | ED.GENMED ---
History of Present Illness
General
Chief Complaint: Skin Problem
Time Seen by Provider: 07/26/25 09:27
History of Present Illness
History of Present Illness:
80-year-old female with history of hypertension, hyperlipidemia, and peripheral edema presents for evaluation of suspected cellulitis of the right lower extremity. She states she has had redness to her leg for 'a long time' and after being
evaluated by visiting nurses this week was advised to come to the hospital for evaluation. Of note this erythematous area was documented on a recent hospitalization here for UTI at which point she was treated with antibiotics but apparently did not
change despite antibiotic treatment. She reports minimal discomfort, has numerous wounds to the area that are apparently unchanged. No fevers or chills.
Past History
Past History
ED Past Medical History: Hypothyroidism and Other (Osteoarthritis)
ED Past Surgical History: Orthopedic
Social History
Tobacco: Non-smoker
Alcohol: None
Review of Systems
Review of Systems
Allergies reviewed?: Yes
All Other Systems: ROS reviewed and negative except as documented in HPI and ROS
Phy Exam
Physical Exam
Physical Exam:
GEN: Well appearing, NAD, WDWN
HEENT: Oral mucosa moist, no scleral icterus
Cardiac: Regular rate
Lung: No respiratory distress, no tachypnea
MSK: No gross deformity or injuries
Skin: Good color, no pallor or jaundice, erythematous area of skin circumferentially to the distal half of the right lower extremity with numerous overlying superficial wounds/excoriations, nontender, no significant warmth
Neuro: AO x3, moves all extremities freely
Psych: Calm, cooperative
Course
Orders/Labs/Results
Orders:
Orders
07/26/25 09:36
Venous Doppler Lwr Ext Rt [[facility] Venous LOWER Ext RT] Urgent
Comment:
Reason For Exam: RLE edema/redness
07/26/25 09:42
Complete Blood Count/With Diff Urgent
Comprehensive Metabolic Panel Urgent
Abnormal Lab Results
07/26/25
09:42
WBC 12.9 H 10^3/uL
(4.8-10.8)
RBC 4.03 L 10^6/uL
(4.20-5.40)
MCHC 32.4 L g/dL
(33.0-37.0)
MPV 10.8 H fL
(7.4-10.4)
Abs Immat Gran (auto) 0.1 H 10^3/uL
(0-0.05)
Absolute Neuts (auto) 7.4 H 10^3/uL
(1.4-6.5)
Absolute Monos (auto) 1.1 H 10^3/uL
(0.1-0.6)
Absolute Eos (auto) 1.5 H 10^3/uL
(0-0.7)
Immature Gran % 0.7 H %
(0-0.5)
Eosinophils % 11.6 H %
(0-6)
Chloride 108 H mmol/L
(98-107)
Creatinine 0.5 L mg/dL
(0.6-1.0)
Glucose 115 H mg/dl
(70-99)
07/26/25 09:42
07/26/25 09:42
Vital Signs
Initial and Last Documented VS:
Initial Vital Signs
Temp Pulse Resp BP Pulse Ox
98 F 98 16 190/91 95
07/26/25 08:59 07/26/25 08:59 07/26/25 08:59 07/26/25 08:59 07/26/25 08:59
Last Documented Vital Signs
Temp Pulse Resp BP Pulse Ox
98 F 98 16 190/91 95
07/26/25 08:59 07/26/25 08:59 07/26/25 08:59 07/26/25 08:59 07/26/25 09:37
MDM/Problems Addressed
MDM/Problems Addressed:
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 Nevertheless she appears stable and I see no indication
for admission. Will start oral antibiotics
*Pulse Oximetry
SaO2: 95
Oxygen Mode of Delivery: Room air
Patient hypoxic: no
*Critical Care Note
Total Time (30-74mins, 75-104mins- exclusive of procedures): Not Applicable
ED Attending Note
-
Portions of this chart may have been created with voice recognition software.� Occasional wrong word or��sound alike� substitutions may have occurred due to the inherent limitations of voice recognition software.
Discharge Plan
Departure
Patient Disposition: Home (Routine Discharge)
Date of Disposition: 07/26/25
Time of Disposition: 11:26
Patient with high blood pressure during this ER visit?: No
Discharge Problem:
Acute venous stasis dermatitis of right lower extremity
Instructions: Swelling
Prescriptions:
New
cephalexin 500 mg capsule
500 mg PO Q8H 7 Days Qty: 21 0RF
No Action
furosemide 40 MG tablet
40 mg PO DAILY
alendronate 70 MG tablet
70 mg PO TH
amlodipine-benazepril 5-10 mg Capsule
1 cap PO DAILY
levothyroxine 150 mcg Tablet
150 mcg PO DAILY
acetaminophen [Tylenol] 325 mg Tablet
650 mg PO BID
loperamide 2 mg Tablet
2 mg PO Q6HPRN PRN (Reason: diarrhea)
therapeutic multivitamin Tablet
1 tab PO DAILY
(DME) CT chest without contrast
See Rx Instructions .Route .MEDSUPPLY Qty: 1 0RF
Rx Instructions:
to be done after 6 month (around December 2025)
Diagnosis: Mediastinal Lymphadenopathy.
Please fax result to PCP
cefuroxime axetil 500 mg tablet
500 mg PO BID 5 Days Qty: 10 0RF
Referrals:
Geremias Ramos DO [Family Provider, [facility]]
Activity Restrictions/Additional Instructions:
We are treating you for a skin infection however the likelihood is that this skin redness is chronic as a result of your poor blood drainage from the legs. Follow-up with your primary care physician for further assessment
Interventions
Interventions:
*Risk Screen - Suicide Last Done: 07/26/25 08:59
*General Assessment Last Done: 07/26/25 11:46
*Neglect/Abuse Screening Last Done: 07/26/25 08:59
*ED- Fall Risk Assessment Last Done: 07/26/25 11:46
*ED COVID-19 Vaccine History Last Done: 07/26/25 11:46
*ED Influenza Vaccine History Last Done: 07/26/25 11:46
*Nursing Disposition Last Done: 07/26/25 11:46
ED-Skin Assessment Last Done: 07/26/25 10:01
Discharge Date and Time
Discharge Date/Time: 07/26/25 11:47
Print Language: CENTRAL AFRICAN
[2025-07-26 09:55] VITALS: BMI 37.9
[2025-07-26 09:56] LABS: Hematocrit 38.3 % (37.0-47.0); Hemoglobin 12.4 g/dL (12.0-16.0); Mean Corp Hgb Conc. 32.4 g/dL (33.0-37.0); Mean Corpuscular Volume 95.0 fL (81.0-99.0); Nucleated Red Blood Cells % 0 %; Platelet Count 221 10^3/uL (130-400); Red Cell Dist. Width 13.2 % (11.5-14.5)
[2025-07-26 10:09] LABS: ALT (SGPT) 18 U/L (0-35); AST (SGOT) 23 U/L (14-36); Albumin 4.0 g/dl (3.5-5.0); Alkaline Phosphatase 96 U/L (38-126); Blood Urea Nitrogen 17 mg/dl (7-17); Calcium 9.2 mg/dl (8.4-10.2); Carbon Dioxide 28 mmol/L (22-30); Chloride 108 mmol/L (98-107); Estimated Creatinine Clearance 75 ml/min; Glucose 115 mg/dl (70-99); Potassium 4.3 mmol/L (3.5-5.1); Sodium 141 mmol/L (135-145); Total Protein 7.2 g/dl (6.3-8.2); eGFR > 60.00
== END 2025-07-26 11:47 | disposition home or self-care (01) ==
LOC: EMR 08:57
PROVIDERS: Physician Assistant; EMERGENCY PHYSICIAN Emergency Medicine; FAMILY PHYSICIAN Family Medicine
DX: I87.2 Venous insufficiency (chronic) (peripheral) (principal); I10 Essential (primary) hypertension; E78.5 Hyperlipidemia, unspecified; E03.9 Hypothyroidism, unspecified; M19.90 Unspecified osteoarthritis, unspecified site
CPT/HCPCS: 99284; 80053; 85025; 93971